=== PATIENT | female | born 1965 | race Caucasian/White ===

== ENCOUNTER 2017-06-29 06:41 | Day surgery (SDC) | payer OTHER ==
[2017-06-21 14:40] VITALS: BMI 26.9
[2017-06-29] MEDS ORDERED: DEXAMETHASONE SOD PHOSPHATE/PF 10 MG/ML SDV ONE (09:06)
[2017-06-29] MEDS ORDERED: MIDAZOLAM HCL 2 MG/2 ML SINGLE DOSE VIAL ONE (09:06)
[2017-06-29] MEDS ORDERED: ROPIVACAINE HCL 0.5% 30ML VIAL ONE (09:06)
[2017-06-29] MEDS ORDERED: PROPOFOL 20 ML ONE (09:47)
[2017-06-29] MEDS ORDERED: ePHEDrine SULFATE 50 MG/1 ML AMPULE ONE (10:00)
[2017-06-29] MEDS ORDERED: LIDOCAINE HCL 2% JELLY (5 ML/TUBE) ONE (10:36)
[2017-06-29] MEDS ORDERED: KETOROLAC TROMETHAMINE 30 MG/1 ML VIAL ONE (10:36)
[2017-06-29] MEDS ORDERED: ONDANSETRON 4 MG/2 ML VIAL ONE (10:36)
[2017-06-29] MEDS ORDERED: ceFAZolin SODIUM 1 GM VIAL ONE (10:36)
[2017-06-29] MEDS ORDERED: DEXAMETHASONE SOD PHOSPHATE 4 MG/1 ML VIAL ONE (10:36)
[2017-06-29] MEDS ORDERED: ONDANSETRON 4 MG/2 ML VIAL IVPUSH PRN (10:56)
[2017-06-29] MEDS ORDERED: oxyCODONE HCL 5 MG TABLET PO PRN ×2 (10:56)
[2017-06-29] MEDS ORDERED: PROMETHAZINE HCL 25 MG/1 ML VIAL IVPUSH PRN (10:56)
[2017-06-29 12:18] VITALS: TEMP 97.5
[2017-06-29 13:23] VITALS: BP 120/68; PULSE 78
--- NOTE | 2017-07-02 13:37 | OP ---
DATE OF OPERATION: 06/29/2017 SURGEON: Jasbir Patel MD TRAVEL REGISTERED NURSE ICU: Pilo Gross PREOPERATIVE DIAGNOSES: 1. Left shoulder adhesive capsulitis. 2. Left shoulder impingement syndrome. 3. Left shoulder acromioclavicular joint disease. 4. Left shoulder superior labral tear anterior and posterior with synovitis. POSTOPERATIVE DIAGNOSES: 1. Left shoulder adhesive capsulitis. 2. Left shoulder impingement syndrome. 3. Left shoulder acromioclavicular joint disease. 4. Left shoulder superior labral anterior and posterior with synovitis. PROCEDURE: 1. Left shoulder arthroscopy with resection of adhesions. 2. Left shoulder arthroscopy with subacromial decompression. 3. Left shoulder arthroscopy with resection distal clavicle, acromioclavicular joint. 4. Left shoulder arthroscopy with debridement. FINDINGS: 1. Partial biceps tear 10%. 2. Superior labral tear, anterior and posterior type 1 with extension anteriorly. 3. Partial rotator cuff tear 20%. 4. Type 2 acromion with anterior and lateral spurring. 5. grade 2-3 cartilage in the glenoid with grade 2 changes of the humerus. 6. Posterior labral fraying. 7. clavicle/acromioclavicular joint disease. PROCEDURE: Informed consent was obtained. The patient was taken to the operating room, where the upper extremity was prepped and draped in a sterile fashion. A scalene block was performed by Anesthesia. Manipulation under anesthesia was allowed for full range of motion. Using standard arthroscopic technique, a posterior incision portal was made, which allowed for introduction of a camera into the glenohumeral joint. Under direct visualization, an anterior incision and portal was made. Extensive and thickened synovitis was debrided. Fraying of the labrum was debrided and the superior labrum from anterior to posterior was identified with all loose areas debrided. Any labral tears were taken to a stable rim including identified SLAP lesions. All loose cartilage was debrided. The rotator cuff was identified and evaluated, as were the subacromial and bursal surfaces. The posterior incision portal was redirected to the subacromial space, where a lateral incision and portal was made. Excessive and thickened synovium was removed throughout the subacromial space including the anterior scar tissue, posterior bursa and lateral bursa. The type 2 acromion was converted to a flattened type 1, removing the anterior and lateral spurring. An accessory portal was made at the acromioclavicular joint, removing the inferior spur of the distal clavicle at the acromioclavicular joint allowing for a distal clavicle partial resection. Please note that 1cm of undersurface of clavicle was removed extending into the intra articular portion and through an accessory portal. The shoulder was once again reexamined and all impingement was removed. The shoulder was drained. A single suture was placed in all portals and a sterile dressing was placed. The patient was transferred to the recovery room without complication. ADDENDUM: Please note, the patient had extensive bone spurring anteriorly and laterally with impingement upon the rotator cuff. JASBIR PATEL M.D. [id number]
--- NOTE | 2017-07-04 09:37 | PATH ---
Surgical Pathology Report Patient Name: TRAVIS KENDALL [facility]. Rec. #: [id number] /Age/Gender: 1965 (Age: 51) / F Account: [id number] Location: [facility] Taken: 06/29/2017 Received: 06/29/2017 Reported: 07/04/2017 Physicians: Jasbir Ortiz M.D. Specimen(s) Received LEFT SHOULDER SHAVINGS Clinical History Left shoulder labral tear Final Diagnosis LEFT SHOULDER, ARTHROSCOPIC SHAVING: PORTIONS OF SYNOVIUM, CARTILAGE, SKELETAL MUSCLE AND BONE CONSISTENT WITH ARTHROSCOPIC SHAVINGS. Electronically Signed Aly Parson M.D. Gross Description Received in formalin, labeled "left shoulder shavings," is a 4.5 x 4.5 x 0.4 cm. aggregate of ryan-yellow soft tissue fragments. A traffic representative portion is submitted in one cassette. /07/02/201707/02/2017
== END 2017-06-29 12:50 | disposition home or self-care (01) ==
LOC: FASU 06:41
PROVIDERS: ATTEND Orthopaedic Surgery
PROC: 0PBB4ZZ Excision of Left Clavicle, Percutaneous Endoscopic Approach (ICD-10-PCS; 2017-06-29)
PROC: 0MM24ZZ Reattachment of Left Shoulder Bursa and Ligament, Percutaneous Endoscopic Approach (ICD-10-PCS; 2017-06-29)
PROC: 0RBK4ZZ Excision of Left Shoulder Joint, Percutaneous Endoscopic Approach (ICD-10-PCS; principal; 2017-06-29 09:00)
DX: M75.02 Adhesive capsulitis of left shoulder (principal); M75.42 Impingement syndrome of left shoulder; M19.012 Primary osteoarthritis, left shoulder; M65.812 Other synovitis and tenosynovitis, left shoulder; S43.432A Superior glenoid labrum lesion of left shoulder, initial encounter; X58.XXXA Exposure to other specified factors, initial encounter; Y93.9 Activity, unspecified; Y92.9 Unspecified place or not applicable
CPT/HCPCS: 94760

== ENCOUNTER 2019-02-28 06:40 | Day surgery (SDC) | payer OTHER ==
[2019-02-24 13:08] VITALS: BMI 25.0
[2019-02-28] MEDS ORDERED: BUPIVACAINE HCL/PF 2.5 MG/ML - 30 ML VIAL IJ ONE (07:10)
[2019-02-28] MEDS ORDERED: EPINEPHrine 1:1,000 1 MG/1 ML - 30ML VIAL (INJECTION) ONE (07:11)
[2019-02-28] MEDS ORDERED: MIDAZOLAM HCL 2 MG/2 ML SINGLE DOSE VIAL ONE (08:22)
[2019-02-28] MEDS ORDERED: PROPOFOL 20 ML ONE ×2 (08:22)
[2019-02-28] MEDS ORDERED: ONDANSETRON 4 MG/2 ML VIAL ONE ×2 (08:37→09:21)
[2019-02-28] MEDS ORDERED: DEXAMETHASONE SOD PHOSPHATE 4 MG/1 ML VIAL ONE (08:37)
[2019-02-28] MEDS ORDERED: LIDOCAINE HCL 2% JELLY (5 ML/TUBE) ONE (08:37)
[2019-02-28] MEDS ORDERED: KETOROLAC TROMETHAMINE 30 MG/1 ML VIAL ONE (08:37)
[2019-02-28] MEDS ORDERED: ceFAZolin SODIUM 1 GM VIAL ONE (08:37)
[2019-02-28] MEDS ORDERED: LIDOCAINE HCL/PF 2% SDV 5ML VIAL ONE (08:37)
[2019-02-28] MEDS ORDERED: BUPIVACAINE HCL/PF 0.25% (2.5MG/ML) 10 ML VIAL IJ ONE (09:10)
[2019-02-28] MEDS ORDERED: ONDANSETRON 4 MG/2 ML VIAL IVPUSH PRN (09:28)
[2019-02-28] MEDS ORDERED: PROMETHAZINE HCL 25 MG/1 ML VIAL IVPUSH PRN (09:28)
[2019-02-28] MEDS ORDERED: oxyCODONE HCL 5 MG TABLET PO PRN ×2 (09:28)
[2019-02-28] MEDS ORDERED: oxyCODONE HCL 5 MG TABLET ONE (09:50)
[2019-02-28] MEDS ORDERED: PROMETHAZINE HCL 25 MG/1 ML VIAL ONE (09:57)
--- NOTE | 2019-02-28 10:29 | OP ---
DATE OF OPERATION: 02/28/2019 Done at [facility] SURGEON: Jasbir Patel MD CONSUMER RECRUITER: JARRELL Gross PREOPERATIVE DIAGNOSES: 1. Left knee medial and lateral meniscal tear. 2. Left knee cartilage tear. 3. Left knee synovitis. POSTOPERATIVE DIAGNOSES: 1. Left knee medial and lateral meniscal tear. 2. Left knee cartilage tear. 3. Left knee synovitis. PROCEDURE: 1. Left knee arthroscopy with partial meniscectomy medial and lateral meniscus, CPT code 19099. 2. Left knee arthroscopy with chondroplasty and abrasion-plasty, CPT code 52719. 3. Left knee arthroscopy with synovectomy, CPT code 21251. FINDINGS: 1. Medial meniscus [id number] horn tear with central split inner 1/3 complex tear. 2. Lateral meniscus body tear. 3. Synovitis patellofemoral medial and lateral notch area. 4. Central grade 3 cartilage injury medial femoral condyle. 5. Diffuse grade 1-2 changes medial tibial plateau. 6. Grade 1-2 changes lateral femoral condyle, tibial plateau. 7. Central grade 2-3 cartilage changes central patella with lateral facet grade 3-4 changes. PROCEDURE: Informed consent was obtained. The patient came to the operating room, where the lower extremity was prepped and draped in a sterile fashion. A tourniquet was placed on the upper thigh, but not inflated. Using standard arthroscopic technique, a lateral incision and portal was made to allow for introduction of the camera into the suprapatellar bursa. This was then taken to the medial joint line, where under direct visualization, a medial incision and portal was made. Excessive synovium noted in the medial, lateral and patellofemoral and notch area was removed by an upbiter, shaver and Bovie cautery. This was found to bring in inflammatory tissue into the joint surface, a source of pain and dysfunction. Probing of the medial and lateral meniscus found tears, as described in the findings. These were removed with the upbiter and shaver and taken back to a stable rim. Grade 2 to 3 degenerative changes were treated with a chondroplasty, removing all flaking surfaces with low-setting Bovie along the periphery to prevent further flaking. Grade 4 changes, as noted, were treated with an abrasoplasty, creating a bleeding surface at the bone/cartilage interface. Aggressive debridement with shaver/bisi created bleeding surface. Micro fracture also done when indicated in findings. All areas of the knee were once again reexamined. The knee was then drained and a single suture was placed in all portals. A sterile dressing was placed and the patient was transferred to the recovery room without complication. The PA listed above was present and assisted at surgery. Their presence was absolutely medically necessary for the completion of the procedure. They helped hold the arthroscopy, pass instruments (and implants when indicated) and the procedure could not have been completed without their assistance. JASBIR PATEL M.D. [id number]
[2019-02-28 10:37] VITALS: TEMP 98.3
[2019-02-28 12:01] VITALS: BP 120/72; PULSE 66
--- NOTE | 2019-03-06 09:15 | PATH ---
Surgical Pathology Report Patient Name: TRAVIS KENDALL [facility]. Rec. #: [id number] /Age/Gender: 1965 (Age: 53) / F Account: [id number] Location: [facility] Taken: 02/28/2019 Received: 02/28/2019 Reported: 03/06/2019 Physicians: Jasbir Ortiz M.D. Specimen(s) Received LEFT KNEE SHAVINGS Clinical History Left knee internal derangement Final Diagnosis KNEE, LEFT, ARTHROSCOPIC SHAVINGS: FIBROSYNOVIAL TISSUE AND CARTILAGE. Electronically Signed Nicolle Velarde M.D. Gross Description Received in formalin, labeled "left knee shavings," is a 4 x 3 x 1.5 cm. aggregate of ryan to yellow-brown soft tissue fragments. A business office representative portion is submitted in one cassette. MLSZ/03/03/2019 [place]/03/03/2019
== END 2019-02-28 11:55 | disposition home or self-care (01) ==
LOC: FASU 06:40
PROVIDERS: ATTEND Orthopaedic Surgery
PROC: 0SBD4ZZ Excision of Left Knee Joint, Percutaneous Endoscopic Approach (ICD-10-PCS; 2019-02-28)
PROC: 0SBD4ZZ Excision of Left Knee Joint, Percutaneous Endoscopic Approach (ICD-10-PCS; 2019-02-28)
PROC: 0SBD4ZZ Excision of Left Knee Joint, Percutaneous Endoscopic Approach (ICD-10-PCS; principal; 2019-02-28 09:00)
DX: S83.242A Other tear of medial meniscus, current injury, left knee, initial encounter (principal); S83.282A Other tear of lateral meniscus, current injury, left knee, initial encounter; S83.8X2A Sprain of other specified parts of left knee, initial encounter; M65.862 Other synovitis and tenosynovitis, left lower leg; X58.XXXA Exposure to other specified factors, initial encounter; Y93.9 Activity, unspecified; Y92.9 Unspecified place or not applicable
CPT/HCPCS: 88304-TC; 94760

== ENCOUNTER 2019-05-02 09:26 | Day surgery (SDC) | payer OTHER ==
[2019-04-30 14:11] VITALS: BMI 26.5
[2019-05-02] MEDS ORDERED: BUPIVACAINE HCL/PF 2.5 MG/ML - 30 ML VIAL IJ ONE (10:30)
[2019-05-02] MEDS ORDERED: MIDAZOLAM HCL 2 MG/2 ML SINGLE DOSE VIAL ONE (11:10)
[2019-05-02] MEDS ORDERED: ceFAZolin SODIUM 1 GM VIAL ONE (11:17)
[2019-05-02] MEDS ORDERED: ONDANSETRON 4 MG/2 ML VIAL ONE ×2 (11:21→12:06)
[2019-05-02] MEDS ORDERED: DEXAMETHASONE SOD PHOSPHATE 4 MG/1 ML VIAL ONE (11:21)
[2019-05-02] MEDS ORDERED: PROPOFOL 20 ML ONE (11:41)
[2019-05-02] MEDS ORDERED: BUPIVACAINE HCL/PF 0.25% (2.5MG/ML) 10 ML VIAL IJ ONE (11:51)
[2019-05-02] MEDS: HYDROmorphone HCL CARPU-JECT 2 MG/1 ML DISP.SYRIN IVPUSH PRN ×2 (12:00→12:25)
[2019-05-02] MEDS ORDERED: oxyCODONE HCL 5 MG TABLET PO PRN (12:06)
[2019-05-02] MEDS ORDERED: ONDANSETRON 4 MG/2 ML VIAL IVPUSH PRN (12:06)
[2019-05-02] MEDS ORDERED: HYDROmorphone HCL 0.5 MG/0.5 ML SYRINGE ONE (12:06)
[2019-05-02] MEDS ORDERED: LACTATED RINGERS SOLUTION 1,000 ML IV SCH (12:15)
[2019-05-02] MEDS ORDERED: HYDROmorphone HCl 2 MG/ML VIAL ONE (12:24)
[2019-05-02] MEDS ORDERED: oxyCODONE HCL 5 MG TABLET ONE (13:11)
[2019-05-02 14:10] VITALS: BP 123/68; PULSE 56; TEMP 97.8
--- NOTE | 2019-05-02 14:13 | OP ---
DATE OF OPERATION: 05/02/2019 Done at [facility] SURGEON: Jasbir Patel MD AGRICULTURAL ENGINEERING TECHNICIAN: JARRELL Gross PREOPERATIVE DIAGNOSES: 1. Right knee medial and lateral meniscal tear. 2. Right knee cartilage injury. 3. Right knee synovitis. POSTOPERATIVE DIAGNOSES: 1. Right knee medial and lateral meniscal tear. 2. Right knee cartilage injury. 3. Right knee synovitis. PROCEDURE: 1. Right knee arthroscopy with partial meniscectomy medial and lateral meniscus, CPT code 88918. 2. Right knee arthroscopy with chondroplasty and abrasion-plasty, CPT code 56777. 3. Right knee arthroscopy with synovectomy, CPT code 47918. FINDINGS: 1. Evidence of previous arthroscopy. 2. Medial meniscus [id number] horn tear with previous partial meniscectomy. 2. Lateral meniscus anterior 1/3 complete tear and posterior 1/3 complete tear. Anterior 1/3 was complete on the undersurface but still had a superior rim. Posterior portion was the entire meniscus from the popliteal fossa to the posterior root. 3. Central grade 2-3 cartilage injury medial femoral condyle, tibial plateau. 4. ACL and PCL intact. 5. Central grade 1-2 changes lateral tibial plateau with 2-3 changes central lateral femoral condyle. 6. Medial facet grade 2-4 changes patella medial facet with 1-2 changes centrally. DESCRIPTION OF PROCEDURE: Informed consent was obtained. The patient came to the operating room, where the lower extremity was prepped and draped in a sterile fashion. A tourniquet was placed on the upper thigh, but not inflated. Using standard arthroscopic technique, a lateral incision and portal was made to allow for introduction of the camera into the suprapatellar bursa. This was then taken to the medial joint line, where under direct visualization, a medial incision and portal was made. Excessive synovium noted in the medial, lateral and patellofemoral and notch area was removed by an upbiter, shaver and Bovie cautery. This was found to bring in inflammatory tissue into the joint surface, a source of pain and dysfunction. Probing of the medial and lateral meniscus found tears, as described in the findings. These were removed with the upbiter and shaver and taken back to a stable rim. Grade 2 to 3 degenerative changes were treated with a chondroplasty, removing all flaking surfaces with low-setting Bovie along the periphery to prevent further flaking. Grade 4 changes, as noted, were treated with an abrasoplasty, creating a bleeding surface at the bone/cartilage interface. Aggressive debridement with shaver/bisi created bleeding surface. Micro fracture also done when indicated in findings. All areas of the knee were once again reexamined. The knee was then drained and a single suture was placed in all portals. A sterile dressing was placed and the patient was transferred to the recovery room without complication. The PA listed above was present and assisted at surgery. Their presence was absolutely medically necessary for the completion of the procedure. They helped hold the arthroscopy, pass instruments (and implants when indicated) and the procedure could not have been completed without their assistance. JASBIR PATEL M.D. [id number]
--- NOTE | 2019-05-07 18:16 | PATH ---
Surgical Pathology Report Patient Name: TRAVIS KENDALL Med. Rec. #: [id number] /Age/Gender: 1965 (Age: 53) / F Account: [id number] Location: [facility] Taken: 05/02/2019 Received: 05/02/2019 Reported: 05/07/2019 Physicians: Jasbir Ortiz M.D. Specimen(s) Received RIGHT KNEE SHAVINGS Clinical History Chondromalacia right knee, unilateral primary osteoarthritis Final Diagnosis RIGTH KNEE SHAVINGS: FRAGMENTS OF CARTILAGE AND FIBROSYNOVIAL TISSUE WITH FOCAL FIBROSIS. Electronically Signed Petros Ko M.D. Gross Description Received in formalin, labeled "right knee shaving," is a 5.0 x 4.3 x 0.3 cm. aggregate of ryan-yellow soft tissue fragments. A service liaison representative portion is submitted in one cassette. /05/05/2019 saudi05/05/2019
== END 2019-05-02 14:10 | disposition home or self-care (01) ==
LOC: FASU 09:26
PROVIDERS: ATTEND Orthopaedic Surgery
PROC: 0SBC4ZZ Excision of Right Knee Joint, Percutaneous Endoscopic Approach (ICD-10-PCS; 2019-05-02)
PROC: 0SBC4ZZ Excision of Right Knee Joint, Percutaneous Endoscopic Approach (ICD-10-PCS; 2019-05-02)
PROC: 0SBC4ZZ Excision of Right Knee Joint, Percutaneous Endoscopic Approach (ICD-10-PCS; principal; 2019-05-02 11:28)
DX: S83.241A Other tear of medial meniscus, current injury, right knee, initial encounter (principal); S83.281A Other tear of lateral meniscus, current injury, right knee, initial encounter; S83.8X1A Sprain of other specified parts of right knee, initial encounter; M65.861 Other synovitis and tenosynovitis, right lower leg; X58.XXXA Exposure to other specified factors, initial encounter; Y93.9 Activity, unspecified; Y92.9 Unspecified place or not applicable
CPT/HCPCS: 88304-TC; 94760